=== PATIENT | male | born 1955 | race African-American/Black ===

== ENCOUNTER 2018-11-10 16:17 | Emergency (ER) | payer MEDICAID, OTHER ==
[~2018-11-10] VITALS: Ht 165.1 cm; Wt 72.6 kg
[2018-11-10 16:27] VITALS: BP 156/86
[2018-11-10] MEDS ORDERED: cefTRIAXone SOD 1,000 MG VL IM ONE (17:45)
== END 2018-11-10 18:03 | disposition home or self-care (01) ==
LOC: ER 16:23
DX: S60.461A Insect bite (nonvenomous) of left index finger, initial encounter (principal); W57.XXXA Bitten or stung by nonvenomous insect and other nonvenomous arthropods, initial encounter; Y93.89 Activity, other specified; Y99.8 Other external cause status; Y92.89 Other specified places as the place of occurrence of the external cause
CPT/HCPCS: 96372; 99283; J0696